=== PATIENT | male | born 1945 | race Caucasian/White ===

== ENCOUNTER 2017-05-21 12:45 | Outpatient (CLI) | payer MEDICARE, OTHER ==
--- NOTE | 2017-05-21 15:47 | CT ---
CT OF THE CHEST WITHOUT CONTRAST FOR LOW DOSE CANCER SCREENING PROTOCOL: History: 58-year smoking history with constant cough. Technique: Multiple contiguous axial images were obtained in a CT of the chest without contrast for low dose cancer screening protocol. Sagittal and coronal reformats were performed. FINDINGS: Paraseptal emphysematous changes are seen in the lung apices. There are increased interstitial lung markings anteriorly in the right middle lobe and lingula. There are bilateral calcified pleural plaq ues likely secondary to prior asbestos exposure. There is a 10 mm spiculated region along the lateral aspect of the left major fissure. A spiculated region in the right upper lobe on image 24 of 59 likely represents scarring and does not appear mass like. There is a less than 4 mm nodule in the right upper lobe on image 30 of 69. No other pulmonar y nodules are seen. No pneumothorax or pleural effusion are seen. Heart is normal in size without cardiac abnormality. Calcifications are seen in the coronary arterie s and aorta. No hilar or mediastinal lymphadenopathy are seen. Degenerative changes are seen in the spine. The visualized subdiaphragmatic structures are unremarka ble. IMPRESSION: 1. There is a 10 mm spiculated region along the major fissure. Although this could represent scarrin g, a focal mass is also a possibility. A follow up CT in 3 months versus a chest CT are recommended for further evaluation and assessment. 2. Bilateral pleural plaques are likely from prior asbestos exposure. 3. Emphysema. POS: LELA
== END 2017-05-21 12:46 | disposition home or self-care (01) ==
LOC: CT 12:45
PROVIDERS: ATTEND Family Medicine
DX: Z12.2 Encounter for screening for malignant neoplasm of respiratory organs (principal); J43.9 Emphysema, unspecified; F17.210 Nicotine dependence, cigarettes, uncomplicated
CPT/HCPCS: G0297

== ENCOUNTER 2020-06-07 12:33 | Outpatient (CLI) | payer MEDICARE, OTHER ==
--- NOTE | 2020-06-07 14:12 | CT ---
CT CHEST WITHOUT CONTRAST: CT chest performed with low-dose protocol following pulmonary screening protocol. INDICATION: A long history of smoking. Nicotine dependence. COMPARISON: Comparison is made to CT pulmonary lung scan screening exam of 05/21/2017. FINDINGS: Both lungs again show chronic lung parenchymal changes consistent with emphysematous change. Numerou s bullae in the upper lobes are again noted. Interlobular emphysematous change. Hyperexpansion. The pulmonary nodule seen in the left upper lobe adjacent to the fissure is again noted. This does n ot appear significantly changed continuing to measure approximately 1.0 cm in the coronal plane. A s mall focal area of spiculation in the right upper lung peripherally is stable. Calcified pleural plaquing is again noted. Plaquing over the hemidiaphragms again noted. Calcified nodule within the fissure left lower lung is stable. Mediastinum shows small calcified mediastinal lymph nodes which are stable. Granulomatous calcificat ions in the spleen. Osseous structures again show osteopenia with anterior wedging of several midtho racic vertebrae. these are most pronounced at T7 and T8. The T7 compression has occurred since the prior exam. The T8 compression appears stable. IMPRESSION: 1. Chronic lung parenchymal changes appear stable as described above. 2. New anterior wedge compression of T7 vertebra. 3. Lung RADS 2. Recommend continued annual low-dose screening. POS: OLEG
== END 2020-06-07 12:34 | disposition home or self-care (01) ==
LOC: BICCT 12:33
PROVIDERS: ATTEND Family Medicine
DX: R91.8 Other nonspecific abnormal finding of lung field (principal); Z87.891 Personal history of nicotine dependence; G95.20 Unspecified cord compression
CPT/HCPCS: G0297

== ENCOUNTER 2023-03-25 00:48 | Inpatient (IN) | payer MEDICARE, OTHER ==
[2023-03-25] MEDS ORDERED: Cefepime 2 GM VIAL ONE (01:45)
[2023-03-25 01:55] LABS: Bacteria/HPF 3+ HPF (None Seen); Bilirubin Negative (Negative); Blood, Urine 1+ (Negative); CAUTI Indications for Culture Alt mental st,lethar; Clarity Turbid (Clear); Glucose, Urine (Dipstick) Normal (Negative); Ketone, Urine Negative (Negative); Leukocyte 500 Leu/uL (Negative); Nitrite Negative (Negative); Protein, Urine (Dipstick) 30 mg/dL (Neg-Trace); Specific Gravity, Urine 1.022 (1.002-1.036); Squamous Epithelial 0-3 HPF (0-3); Transitional Epithelial 0-3 HPF (None Seen); WBC/HPF Greater than 50 HPF (0-3); pH, Urine 6.5 (5.0-9.0)
[2023-03-25] MEDS ORDERED: VANCOMYCIN 1.25 GM/250 ML BAG 1.25 GM in Premix Bag 1 BAG IVPB SCH (02:00)
[2023-03-25] MEDS ORDERED: Vancomycin 1.5 GRAM/300 ML BAG 1.5 GM in Premix Bag 1 BAG IVPB SCH (02:00)
[2023-03-25 02:05] LABS: Urine Culture Reflex Yes Yes
[2023-03-25 02:12] LABS: #Eosinphils 0.1 thou/uL (0.0-0.7); #Monocytes 1.5 thou/uL (0.11-0.59); %Basophils 0.2 % (0.0-1.0); %Eosinophils 0.3 % (0.0-10.0); %Monocytes 8.6 % (0.0-10.0); %Neutrophils 82.3 % (42.0-75.0); Hematocrit 33.7 % (42.0-52.0); Hemoglobin 10.5 g/dL (14.0-18.0); Mean Corpuscular HGB CONC 31.2 g/dL (32.0-36.0); Mean Corpuscular Volume 96.3 fl (78.0-98.0); Mean Platelet Volume 10.1 fL (7.4-10.4); Platelet Count 235 10x3/uL (130-400); RBC Distribution Width 15.2 % (11.5-14.5)
[2023-03-25 02:40] LABS: ALT (SGPT) 17 U/L (8-55); AST (SGOT) 25 U/L (5-34); Albumin 3.4 g/dL (3.4-4.8); Alkaline Phosphatase 79 U/L (40-110); Anion Gap 14 mmol/L (10-20); BUN (Urea Nitrogen) 20 mg/dL (8.4-25.7); Calc. Creatinine Clearance 0 mL/min (70-130); Calcium 8.9 mg/dL (7.8-10.44); Carbon Dioxide 22 mmol/L (23-31); Chloride 106 mmol/L (98-107); Estimated GFR 76; Globulin 4.3 g/dL (2.4-3.5); Glucose 108 mg/dL (83-110); Potassium 4.3 mmol/L (3.5-5.1); Protein, Total 7.7 g/dL (5.8-8.1); Sodium 138 mmol/L (136-145)
[2023-03-25 02:59] LABS: CKMB 1.3 ng/mL (0-6.6)
[2023-03-25 03:14] LABS: INR-International Normal Ratio 1.4; PTT 32.7 sec (22.9-36.1); Prothrombin Time 17.6 sec (12.0-14.7)
[2023-03-25] MEDS ORDERED: Acetaminophen 325 MG TAB PO PRN (04:09)
[2023-03-25] MEDS ORDERED: Acetaminophen 650 MG Suppository PR PRN (04:09)
[2023-03-25] MEDS ORDERED: Ondansetron ODT 4 MG TAB PO PRN (04:09)
[2023-03-25] MEDS ORDERED: Ondansetron PF 4 MG/2 ML Vial IVP PRN (04:09)
[2023-03-25 07:41] VITALS: BMI 20.3
[2023-03-25] MEDS: Sodium Chloride 0.9% 1,000 ML IV SCH ×2 (07:50→15:03)
[2023-03-25] MEDS ORDERED: Magnevist 469MG/ML 20 ML VIAL ONE (10:45)
[2023-03-25] MEDS: Cefepime 2 GM in Sodium Chloride 0.9% 100 ML IVPB SCH (13:04)
[2023-03-26] MEDS: Sodium Chloride 0.9% 1,000 ML IV SCH ×3 (01:23→20:07)
[2023-03-26] MEDS: Cefepime 2 GM in Sodium Chloride 0.9% 100 ML IVPB SCH ×2 (01:23→12:03)
[2023-03-26] MEDS: VANCOMYCIN 1.25 GM/250 ML BAG 1.25 GM in Premix Bag 1 BAG IVPB SCH (03:32)
[2023-03-26 05:47] LABS: #Eosinphils 0.2 thou/uL (0.0-0.7); #Monocytes 0.9 thou/uL (0.11-0.59); #Neutrophils 7.9 thou/uL (1.40-6.50); %Basophils 0.4 % (0.0-1.0); %Eosinophils 1.8 % (0.0-10.0); %Monocytes 8.7 % (0.0-10.0); %Neutrophils 74.8 % (42.0-75.0); Hematocrit 32.8 % (42.0-52.0); Hemoglobin 10.3 g/dL (14.0-18.0); Mean Corpuscular HGB CONC 31.4 g/dL (32.0-36.0); Mean Corpuscular Volume 95.6 fl (78.0-98.0); Mean Platelet Volume 10.6 fL (7.4-10.4); Platelet Count 218 10x3/uL (130-400); RBC Distribution Width 14.7 % (11.5-14.5); Red Blood Cell (RBC) Count 3.43 mill/uL (4.70-6.10); White Blood Cell (WBC) Count 10.5 10x3/uL (4.8-10.8)
[2023-03-26 06:10] LABS: Anion Gap 12 mmol/L (10-20); BUN (Urea Nitrogen) 14 mg/dL (8.4-25.7); Calc. Creatinine Clearance 69 mL/min (70-130); Calcium 8.3 mg/dL (7.8-10.44); Carbon Dioxide 22 mmol/L (23-31); Chloride 104 mmol/L (98-107); Estimated GFR 90; Glucose 85 mg/dL (83-110); Potassium 4.1 mmol/L (3.5-5.1); Sodium 134 mmol/L (136-145)
[2023-03-26] MEDS ORDERED: Iopamidol 370 76% 100 ML VIAL ONE (08:48)
[2023-03-26] MEDS: Atorvastatin Calcium 20 MG TAB PO SCH (20:06)
[2023-03-26] MEDS ORDERED: Atorvastatin Calcium 20 MG TAB PO SCH (21:00)
[2023-03-27] MEDS: Sodium Chloride 0.9% 1,000 ML IV SCH ×3 (01:45→16:20)
[2023-03-27] MEDS: Cefepime 2 GM in Sodium Chloride 0.9% 100 ML IVPB SCH ×2 (01:45→13:43)
[2023-03-27 02:10] LABS: #Eosinphils 0.2 thou/uL (0.0-0.7); #Monocytes 1.1 thou/uL (0.11-0.59); #Neutrophils 5.4 thou/uL (1.40-6.50); %Basophils 0.5 % (0.0-1.0); %Eosinophils 2.7 % (0.0-10.0); %Monocytes 13.3 % (0.0-10.0); Hematocrit 32.7 % (42.0-52.0); Hemoglobin 10.4 g/dL (14.0-18.0); Mean Corpuscular HGB CONC 31.8 g/dL (32.0-36.0); Mean Corpuscular Hemoglobin 29.7 pg (27.0-31.0); Mean Corpuscular Volume 93.4 fl (78.0-98.0); Mean Platelet Volume 10.5 fL (7.4-10.4); Platelet Count 209 10x3/uL (130-400); RBC Distribution Width 14.6 % (11.5-14.5); White Blood Cell (WBC) Count 7.9 10x3/uL (4.8-10.8)
[2023-03-27 02:44] LABS: Anion Gap 14 mmol/L (10-20); BUN (Urea Nitrogen) 12 mg/dL (8.4-25.7); Calc. Creatinine Clearance 71 mL/min (70-130); Calcium 8.4 mg/dL (7.8-10.44); Carbon Dioxide 20 mmol/L (23-31); Chloride 107 mmol/L (98-107); Estimated GFR 92; Glucose 93 mg/dL (83-110); Sodium 137 mmol/L (136-145)
[2023-03-27] MEDS: VANCOMYCIN 1.25 GM/250 ML BAG 1.25 GM in Premix Bag 1 BAG IVPB SCH (03:20)
[2023-03-27 07:06] LABS: Magnesium 1.5 mg/dL (1.6-2.6)
[2023-03-27 07:22] LABS: Troponin I 0.362 ng/mL (< 0.028)
[2023-03-27] MEDS ORDERED: Vancomycin HCl 750 MG in Sodium Chloride 0.9% 250 ML 250 ML IVPB SCH (15:00)
[2023-03-27] MEDS: Fosfomycin 3 GM/Packet PO SCH (16:19)
[2023-03-27] MEDS ORDERED: Aztreonam 1 GM in Sodium Chloride 0.9% 100 ML IVPB SCH (21:00)
[2023-03-27] MEDS: Atorvastatin Calcium 20 MG TAB PO SCH (21:56)
[2023-03-27] MEDS ORDERED: Magnesium 2 GM/50 ML(in water) 2 GM in Premix Bag 1 BAG IVPB SCH (22:00)
[2023-03-28] MEDS: Sodium Chloride 0.9% 1,000 ML IV SCH ×3 (02:17→16:14)
[2023-03-28] MEDS ORDERED: Magnesium Sulfate In Water 4 GM in Premix Bag 1 BAG IVPB SCH (16:15)
[2023-03-28] MEDS: Atorvastatin Calcium 20 MG TAB PO SCH (21:35)
[2023-03-29] MEDS: Sodium Chloride 0.9% 1,000 ML IV SCH (03:45)
[2023-03-29 04:38] LABS: #Eosinphils 0.2 thou/uL (0.0-0.7); #Monocytes 0.8 thou/uL (0.11-0.59); #Neutrophils 4.9 thou/uL (1.40-6.50); %Basophils 0.4 % (0.0-1.0); %Eosinophils 3.2 % (0.0-10.0); %Lymphocytes 18.7 % (21.0-51.0); %Monocytes 10.5 % (0.0-10.0); %Neutrophils 66.8 % (42.0-75.0); Hematocrit 30.4 % (42.0-52.0); Hemoglobin 9.8 g/dL (14.0-18.0); Mean Corpuscular HGB CONC 32.2 g/dL (32.0-36.0); Mean Corpuscular Hemoglobin 29.7 pg (27.0-31.0); Mean Corpuscular Volume 92.1 fl (78.0-98.0); Mean Platelet Volume 10.2 fL (7.4-10.4); Platelet Count 205 10x3/uL (130-400); RBC Distribution Width 14.5 % (11.5-14.5); White Blood Cell (WBC) Count 7.3 10x3/uL (4.8-10.8)
[2023-03-29 05:00] LABS: Anion Gap 10 mmol/L (10-20); BUN (Urea Nitrogen) 7 mg/dL (8.4-25.7); Calc. Creatinine Clearance 73 mL/min (70-130); Carbon Dioxide 21 mmol/L (23-31); Chloride 109 mmol/L (98-107); Estimated GFR 92; Glucose 90 mg/dL (83-110); Potassium 3.5 mmol/L (3.5-5.1); Sodium 136 mmol/L (136-145)
[2023-03-29] MEDS: Atorvastatin Calcium 20 MG TAB PO SCH (21:21)
[2023-03-30] MEDS: Fosfomycin 3 GM/Packet PO SCH (16:27)
[2023-03-30] MEDS: Dextrose 5 % And 0.9 % NaCl 1,000 ML IV SCH (18:05)
[2023-03-30] MEDS: Atorvastatin Calcium 20 MG TAB PO SCH (20:44)
[2023-03-30] MEDS ORDERED: Ipratropium/Albuterol 3 ML NEB NEB SCH (22:30)
[2023-03-30] MEDS ORDERED: Ondansetron PF 4 MG/2 ML Vial IVP SCH (22:30)
[2023-03-30] MEDS ORDERED: Ipratropium/Albuterol 3 ML NEB NEB PRN (23:25)
[2023-03-30] MEDS ORDERED: Piperacillin/Tazobactam 3.375 GM in Sodium Chloride 0.9% 100 ML IVPB SCH (23:59)
[2023-03-31] MEDS ORDERED: LevoFLOXacin 750 mg/D5W 750 MG in Premix Bag 1 BAG IVPB SCH (01:00)
[2023-03-31] MEDS: Piperacillin/Tazobactam 3.375 GM in Sodium Chloride 0.9% 100 ML IVPB SCH ×2 (04:55→13:00)
[2023-03-31] MEDS: Dextrose 5 % And 0.9 % NaCl 1,000 ML IV SCH (09:05)
[2023-03-31] MEDS ORDERED: Ondansetron PF 4 MG/2 ML Vial IVP PRN (09:26)
[2023-03-31] MEDS ORDERED: Lorazepam 2 MG/ML VIAL SLOW IVP PRN (09:40)
[2023-03-31] MEDS ORDERED: Scopolamine 1.5 mg/72 hour Patch TD SCH (10:00)
[2023-03-31 12:14] VITALS: BP 119/72; TEMP 97.8
== END 2023-03-31 13:53 | disposition hospice, inpatient (51) | DRG 871 ==
LOC: ERS 00:48 → IMCU/EMU 03:55 → 2SE 23:11
PROVIDERS: ADMIT Student in an Organized Health Care Education/Training Program; ATTEND Family Medicine
PROC: 0T9B70Z Drainage of Bladder with Drainage Device, Via Natural or Artificial Opening (ICD-10-PCS; principal; 2023-03-25)
PROC: 3E03329 Introduction of Other Anti-infective into Peripheral Vein, Percutaneous Approach (ICD-10-PCS; 2023-03-25)
PROC: XW0DXF5 Introduction of Other New Technology Therapeutic Substance into Mouth and Pharynx, External Approach, New Technology Group 5 (ICD-10-PCS; 2023-03-27)
DX: A41.51 Sepsis due to Escherichia coli [E. coli] (principal); G93.41 Metabolic encephalopathy; I63.40 Cerebral infarction due to embolism of unspecified cerebral artery; I61.9 Nontraumatic intracerebral hemorrhage, unspecified; Z66 Do not resuscitate; Z51.5 Encounter for palliative care; I21.A1 Myocardial infarction type 2; J18.9 Pneumonia, unspecified organism; J69.0 Pneumonitis due to inhalation of food and vomit; N39.0 Urinary tract infection, site not specified; I47.20 Ventricular tachycardia, unspecified; E83.42 Hypomagnesemia; R65.20 Severe sepsis without septic shock; Z79.82 Long term (current) use of aspirin; I73.9 Peripheral vascular disease, unspecified; D64.9 Anemia, unspecified; Z79.899 Other long term (current) drug therapy; Z85.51 Personal history of malignant neoplasm of bladder; Z98.890 Other specified postprocedural states
CPT/HCPCS: 36415; 36416; 51701; 70450; 70553; 71045; 71260; 74177; 80048; 80053; 80202; 81001; 82553; 83605; 83735; 84484; 85025; 85610; 85730; 86850; 86900; 86901; 87040; 87077; 87086; 87186; 93005; 93010; 93306; 94640; 96365; 96366; 96367; A9579; J0692; J1956; J2060; J2405; J2543; J3370; J3475; J3490; J7042; J7050; J7620; Q9967

== ENCOUNTER 2023-03-31 14:02 | Inpatient (IN) | payer OTHER ==
[2023-03-31] MEDS ORDERED: Ondansetron PF 4 MG/2 ML Vial IVP PRN (14:50)
[2023-03-31] MEDS ORDERED: Haloperidol Lactate 5 MG/ML VIAL SLOW IVP PRN (14:51)
[2023-03-31] MEDS ORDERED: Lorazepam 2 MG/ML VIAL SLOW IVP PRN (14:52)
[2023-03-31] MEDS ORDERED: Scopolamine 1.5 mg/72 hour Patch TOP SCH (15:00)
[2023-03-31] MEDS: Morphine 2 MG/ML VIAL SLOW IVP PRN ×2 (18:48→21:38)
[2023-04-01] MEDS: Morphine 2 MG/ML VIAL SLOW IVP PRN ×4 (00:55→22:07)
[2023-04-01 07:31] VITALS: BMI 20.2
[2023-04-02] MEDS: Morphine 2 MG/ML VIAL SLOW IVP PRN ×6 (00:45→17:53)
[2023-04-02] MEDS ORDERED: Morphine 2 MG/ML VIAL SLOW IVP PRN (22:40)
[2023-04-02] MEDS: Morphine 2 MG/ML VIAL SLOW IVP SCH (23:54)
[2023-04-03] MEDS: Morphine 2 MG/ML VIAL SLOW IVP SCH ×5 (01:35→09:30)
[2023-04-03 01:55] VITALS: BP 91/57
[2023-04-03 06:16] VITALS: TEMP 95.5
== END 2023-04-03 07:02 | disposition expired | DRG 951 ==
LOC: 2SE 14:02 → T4-A 17:46 → T4-B 18:00
PROVIDERS: ADMIT Family Medicine; ATTEND Family Medicine
DX: Z51.5 Encounter for palliative care (principal); J69.0 Pneumonitis due to inhalation of food and vomit; A41.9 Sepsis, unspecified organism; A41.51 Sepsis due to Escherichia coli [E. coli]; I62.9 Nontraumatic intracranial hemorrhage, unspecified; N39.0 Urinary tract infection, site not specified; I47.1 Supraventricular tachycardia; R13.12 Dysphagia, oropharyngeal phase; E83.42 Hypomagnesemia
CPT/HCPCS: J2060; J2272